=== PATIENT | female | born 1965 | race Caucasian/White ===

== ENCOUNTER 2023-06-09 14:49 | Emergency (ER) | payer BC, SELFPAY ==
[2023-06-09 14:52] VITALS: BP 195/101; PULSE 87; RESP 18; TEMP 37.1; O2SAT 99; BMI 41.5
--- NOTE | 2023-06-09 16:15 | ED.GENADULT ---
HPI - General Adult General Chief complaint: Diabetic Related Problem Stated complaint: Blood sugar 430 Time Seen by Provider: 06/09/23 16:15 History of Present Illness HPI narrative: usually takes jardiance. new insurance doesn't cover. so hasn't been taking anything. called PMD today when accu check was 430 and was referred to ED. has taken Lantus before between oral meds, but is out 57-year-old woman presenting to the emergency department with concern of hyperglycemia. Today blood sugar reached high of 430 and after calling into her clinic her triage line sent her to the emergency department for care. She does admit that is feeling more woozy. She has not had a fever. Chronically with urinary frequency regardless. She has been without her usual Jardiance due to lack of insurance coverage/change in insurance for the last couple of weeks. Due to this also has been told by insurance that her primary provider is not on her list of covered providers, although her primary care clinic apparently is covered. 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 Continuing to take 10 units of Lantus at at bedtime, sounds like the evenings. Historically was intolerant of metformin, Trulicity, Ozempic. Does have somewhat of a headache. Otherwise no pain complaints. Related Data Home Medications Medication Instructions Recorded Confirmed atorvastatin 20 mg tablet 20 mg PO QPM 06/09/23 06/09/23 lisinopril 10 mg tablet 10 mg PO DAILY 06/09/23 06/09/23 Allergies Allergy/AdvReac Type Severity Reaction Status Date / Time codeine Allergy Verified 06/09/23 14:57 Review of Systems Status of ROS: Reports: 6 or more systems reviewed and unremarkable except as noted in History and below PFSH PFS Social History Smoking Status: Never smoker How often do you have a drink containing alcohol: never How often do you have six or more drinks on one occasion: Never AUDIT-C Alcohol total score: 0 Non-prescribed substance use: denies use Exam Narrative: Exam Narrative: Vitals noted on arrival is with rather elevated blood pressure. She is accompanied by her daughter I believe. Easily conversant. Breathing easily. I do not small ketones. Skin is warm dry. Pulse is in a regular rate. Looks to have chronic right slightly greater than left lower extremity edema with some posterior lower leg well-healed ulcerations at this point. Hemosiderin deposition in his right leg as well. Heart in regular rate and rhythm without murmur rub or gallop. Abdomen soft, overweight, nontender. Const: Vital Signs, click to edit/add: Vital Signs - 24 hr 06/09/23 17:30 Pulse Rate [Right Pulse Oximeter] 67 Respiratory Rate 20 Blood Pressure [Ri ght Upper Arm] 159/89 H Pulse Oximetry 97 Oxygen Delivery Me thod Room Air Documenting provider has reviewed patient's vital signs: yes Course Vital Signs Vital signs: Initial Vital Signs Temperature 98.7 F 06/09/23 14:52 Temperature Source Temporal Artery Scan 06/09/23 14:52 Pulse Rate 87 06/09/23 14:52 Respiratory Rate 18 06/09/23 14:52 Blood Pressure 195/101 H 06/09/23 14:52 Blood Pressure Mean 132 H 06/09/23 14:52 Pulse Oximetry 99 06/09/23 14:52 Oxygen Delivery Method Room Air 06/09/23 14:52 Vital Signs Temperature 98.7 F 06/09/23 14:52 Pulse Rate 87 06/09/23 14:52 Respiratory Rate 18 06/09/23 14:52 Blood Pressure 195/101 H 06/09/23 14:52 Pulse Oximetry 99 06/09/23 14:52 Oxygen Delivery Method Room Air 06/09/23 14:52 Temperature 98.7 F 06/09/23 14:52 Pulse Rate 67 06/09/23 17:30 Respiratory Rate 20 06/09/23 17:30 Blood Pressure 159/89 H 06/09/23 17:30 Pulse Oximetry 97 06/09/23 17:30 Oxygen Delivery Method Room Air 06/09/23 17:30 Medications Administered Medications: Discontinued Medications Generic Name Dose Route Start Last Admin Trade Name Freq PRN Reason Stop Dose Admin Sodium Chloride 1,000 mls @ 1,000 mls/hr 06/09/23 16:43 06/09/23 18:41 0.9 % Sodium Chloride 1000 Ml IV 06/09/23 17:42 0 mls/hr .Q1H ONE Infusion Insulin Human Regular 12 unit 06/09/23 16:43 06/09/23 17:37 Insulin Regular 100 Unit/Ml Inj IVP 06/09/23 16:44 12 unit ONCE ONE Administration Medical Decision Making MDM Narrative Medical decision making narrative: Ideally this would and I think could be managed in primary care clinic. She is however symptomatic. Evaluate for potential degree of acidosis; any evidence of infection. Will initiate IV fluids. Get her blood sugar headed down but will need to do stop gap I suspect with increasing doses of Lantus and sliding-scale insulin possibly. Checking labs for red flags. Surely is dehydrated to some degree. Labs are overall reassuring without acidosis with initial blood sugar though at 289. Was given 12 units regular insulin. On reassessment feeling improved. Still with some headache. Recheck blood sugar at 236. Discussed outpatient management. She does report having enough Lantus and needles and monitoring supplies, depending on dosing, to last somewhere between 2 to 4 weeks. Reports that was anticipating able to schedule in clinic about a week from now. Challenging to figure out how to schedule dosing due to irregular schedule, working nights. Has never really engaged in carb counting though does have this information available. Also could certainly improve diet. Reviewed again type 2 diabetes versus type 1. Probably best to keep this simple and use what she has. I do not think sugars will get wildly out of control. Has a lot of room to go with Lantus. Given intolerance of various medications and that it does not appear that she has ever got close to maximizing dosing of Lantus, will try to adjust dosing of Lantus for better sugar control. Efforts to decrease insulin resistance will need to be with physical activity for now. See patient discharge plan for further discussion Lab Data Lab results reviewed: Yes I reviewed the patient's lab results Labs: Lab Results 06/09/23 06/09/23 06/09/23 Range/Units 16:45 17:20 17:20 WBC 8.20 (4.50-11.00) K/uL RBC 4.72 (4.00-5.20) m/uL Hgb 13.8 (12.0-16.0) gm/dL Hct 42.8 (33.0-51.0) % MCV 91 (80-100) fL MCH 29 (26-34) pg MCHC 32 (32-36) gm/dL RDW Coeff of [place] 13.3 (11.5-15.5) % Plt Count 195 (140-440) K/uL Neut % (Auto) 62.9 (42.0-72.0) % Lymph % (Auto) 30.6 (20-44) % [place] % (Auto) 5.1 (0.0-11.0) % Eos % (Auto) 1.1 (0.0-7.0) % Baso % (Auto) 0.2 (0.0-3.0) % Neut # (Auto) 5.15 (1.7-7.0) K/uL Lymph # (Auto) 2.51 (0.90-2.90) K/uL [place] # (Auto) 0.40 (0.00-0.90) K/UL Eos # (Auto) 0.09 (0.00-0.50) K/uL Baso # (Auto) 0.02 (0.00-0.30) K/uL Abs Immat Gran (auto) 0.01 (0.00-0.30) K/uL Imm/Tot Granulo (auto) 0.1 % VBG pH 7.386 (7.32-7.43) VBG pCO2 43 (40-50) mmHG VBG pO2 30.6 (25-47) mmHG VBG HCO3 26 (21-28) mmol/L Sodium Cancelled 133 L Potassium Cancelled Chloride Carbon Dioxide Anion Gap BUN Creatinine Estimated Creat Clear Estimated GFR Glucose Lactate (0.5-1.9) mmol/L Calcium Total Bilirubin (0.1-1.5) mg/dL Direct Bilirubin (0.0-0.5) mg/dL AST (12-35) U/L ALT (4-35) U/L Alkaline Phosphatase (40-150) U/L C-Reactive Protein (0.5-1.0) mg/dL Total Protein (6.0-8.3) g/dL Albumin (3.3-5.0) g/dL Urine Color Yellow (Yellow) Urine Appearance Clear (Clear) Urine pH 6.0 (5.0-8.5) Ur Specific [place] 1.020 (1.000-1.030) Urine Protein Negative (Negative) Urine Glucose (UA) 2+ A (Negative) Urine Ketones Negative (Negative) Urine Blood Negative (Negative) Urine Nitrite Negative (Negative) Urine Bilirubin Negative (Negative) Urine Urobilinogen 0.2 (0.2-1.0) Ur Leukocyte Esterase Negative (Negative) Urine RBC 0-2 (0-2) Urine WBC 2-5 (0-5) Ur Squamous Epith Cells Few (None-Few) Urine Bacteria None (None) POC Glucose (60-115) mg/dl 06/09/23 06/09/23 06/09/23 Range/Units 17:20 17:20 17:20 WBC (4.50-11.00) K/uL RBC (4.00-5.20) m/uL Hgb (12.0-16.0) gm/dL Hct (33.0-51.0) % MCV (80-100) fL MCH (26-34) pg MCHC (32-36) gm/dL RDW Coeff of [place] (11.5-15.5) % Plt Count (140-440) K/uL Neut % (Auto) (42.0-72.0) % Lymph % (Auto) (20-44) % [place] % (Auto) (0.0-11.0) % Eos % (Auto) (0.0-7.0) % Baso % (Auto) (0.0-3.0) % Neut # (Auto) (1.7-7.0) K/uL Lymph # (Auto) (0.90-2.90) K/uL [place] # (Auto) (0.00-0.90) K/UL Eos # (Auto) (0.00-0.50) K/uL Baso # (Auto) (0.00-0.30) K/uL Abs Immat Gran (auto) (0.00-0.30) K/uL Imm/Tot Granulo (auto) % VBG pH (7.32-7.43) VBG pCO2 (40-50) mmHG VBG pO2 (25-47) mmHG VBG HCO3 (21-28) mmol/L Sodium Potassium 4.3 Chloride Cancelled 104 Carbon Dioxide Cancelled 24 Anion Gap Cancelled BUN Creatinine Estimated Creat Clear Estimated GFR Glucose Lactate (0.5-1.9) mmol/L Calcium Total Bilirubin (0.1-1.5) mg/dL Direct Bilirubin (0.0-0.5) mg/dL AST (12-35) U/L ALT (4-35) U/L Alkaline Phosphatase (40-150) U/L C-Reactive Protein (0.5-1.0) mg/dL Total Protein (6.0-8.3) g/dL Albumin (3.3-5.0) g/dL Urine Color (Yellow) Urine Appearance (Clear) Urine pH (5.0-8.5) Ur Specific [place] (1.000-1.030) Urine Protein (Negative) Urine Glucose (UA) (Negative) Urine Ketones (Negative) Urine Blood (Negative) Urine Nitrite (Negative) Urine Bilirubin (Negative) Urine Urobilinogen (0.2-1.0) Ur Leukocyte Esterase (Negative) Urine RBC (0-2) Urine WBC (0-5) Ur Squamous Epith Cells (None-Few) Urine Bacteria (None) POC Glucose (60-115) mg/dl 06/09/23 06/09/23 06/09/23 Range/Units 17:20 17:20 17:20 WBC (4.50-11.00) K/uL RBC (4.00-5.20) m/uL Hgb (12.0-16.0) gm/dL Hct (33.0-51.0) % MCV (80-100) fL MCH (26-34) pg MCHC (32-36) gm/dL RDW Coeff of [place] (11.5-15.5) % Plt Count (140-440) K/uL Neut % (Auto) (42.0-72.0) % Lymph % (Auto) (20-44) % [place] % (Auto) (0.0-11.0) % Eos % (Auto) (0.0-7.0) % Baso % (Auto) (0.0-3.0) % Neut # (Auto) (1.7-7.0) K/uL Lymph # (Auto) (0.90-2.90) K/uL [place] # (Auto) (0.00-0.90) K/UL Eos # (Auto) (0.00-0.50) K/uL Baso # (Auto) (0.00-0.30) K/uL Abs Immat Gran (auto) (0.00-0.30) K/uL Imm/Tot Granulo (auto) % VBG pH (7.32-7.43) VBG pCO2 (40-50) mmHG VBG pO2 (25-47) mmHG VBG HCO3 (21-28) mmol/L Sodium Potassium Chloride Carbon Dioxide Anion Gap 5 L BUN Cancelled 17 Creatinine Cancelled 0.7 Estimated Creat Clear Cancelled Estimated GFR Glucose Lactate (0.5-1.9) mmol/L Calcium Total Bilirubin (0.1-1.5) mg/dL Direct Bilirubin (0.0-0.5) mg/dL AST (12-35) U/L ALT (4-35) U/L Alkaline Phosphatase (40-150) U/L C-Reactive Protein (0.5-1.0) mg/dL Total Protein (6.0-8.3) g/dL Albumin (3.3-5.0) g/dL Urine Color (Yellow) Urine Appearance (Clear) Urine pH (5.0-8.5) Ur Specific [place] (1.000-1.030) Urine Protein (Negative) Urine Glucose (UA) (Negative) Urine Ketones (Negative) Urine Blood (Negative) Urine Nitrite (Negative) Urine Bilirubin (Negative) Urine Urobilinogen (0.2-1.0) Ur Leukocyte Esterase (Negative) Urine RBC (0-2) Urine WBC (0-5) Ur Squamous Epith Cells (None-Few) Urine Bacteria (None) POC Glucose (60-115) mg/dl 06/09/23 06/09/23 06/09/23 Range/Units 17:20 17:20 17:20 WBC (4.50-11.00) K/uL RBC (4.00-5.20) m/uL Hgb (12.0-16.0) gm/dL Hct (33.0-51.0) % MCV (80-100) fL MCH (26-34) pg MCHC (32-36) gm/dL RDW Coeff of [place] (11.5-15.5) % Plt Count (140-440) K/uL Neut % (Auto) (42.0-72.0) % Lymph % (Auto) (20-44) % [place] % (Auto) (0.0-11.0) % Eos % (Auto) (0.0-7.0) % Baso % (Auto) (0.0-3.0) % Neut # (Auto) (1.7-7.0) K/uL Lymph # (Auto) (0.90-2.90) K/uL [place] # (Auto) (0.00-0.90) K/UL Eos # (Auto) (0.00-0.50) K/uL Baso # (Auto) (0.00-0.30) K/uL Abs Immat Gran (auto) (0.00-0.30) K/uL Imm/Tot Granulo (auto) % VBG pH (7.32-7.43) VBG pCO2 (40-50) mmHG VBG pO2 (25-47) mmHG VBG HCO3 (21-28) mmol/L Sodium Potassium Chloride Carbon Dioxide Anion Gap BUN Creatinine Estimated Creat Clear 85.19 Estimated GFR Cancelled 100 Glucose Cancelled 289 H Lactate 1.3 (0.5-1.9) mmol/L Calcium Cancelled Total Bilirubin (0.1-1.5) mg/dL Direct Bilirubin (0.0-0.5) mg/dL AST (12-35) U/L ALT (4-35) U/L Alkaline Phosphatase (40-150) U/L C-Reactive Protein (0.5-1.0) mg/dL Total Protein (6.0-8.3) g/dL Albumin (3.3-5.0) g/dL Urine Color (Yellow) Urine Appearance (Clear) Urine pH (5.0-8.5) Ur Specific [place] (1.000-1.030) Urine Protein (Negative) Urine Glucose (UA) (Negative) Urine Ketones (Negative) Urine Blood (Negative) Urine Nitrite (Negative) Urine Bilirubin (Negative) Urine Urobilinogen (0.2-1.0) Ur Leukocyte Esterase (Negative) Urine RBC (0-2) Urine WBC (0-5) Ur Squamous Epith Cells (None-Few) Urine Bacteria (None) POC Glucose (60-115) mg/dl 06/09/23 06/09/23 Range/Units 17:20 18:13 WBC (4.50-11.00) K/uL RBC (4.00-5.20) m/uL Hgb (12.0-16.0) gm/dL Hct (33.0-51.0) % MCV (80-100) fL MCH (26-34) pg MCHC (32-36) gm/dL RDW Coeff of [place] (11.5-15.5) % Plt Count (140-440) K/uL Neut % (Auto) (42.0-72.0) % Lymph % (Auto) (20-44) % [place] % (Auto) (0.0-11.0) % Eos % (Auto) (0.0-7.0) % Baso % (Auto) (0.0-3.0) % Neut # (Auto) (1.7-7.0) K/uL Lymph # (Auto) (0.90-2.90) K/uL [place] # (Auto) (0.00-0.90) K/UL Eos # (Auto) (0.00-0.50) K/uL Baso # (Auto) (0.00-0.30) K/uL Abs Immat Gran (auto) (0.00-0.30) K/uL Imm/Tot Granulo (auto) % VBG pH (7.32-7.43) VBG pCO2 (40-50) mmHG VBG pO2 (25-47) mmHG VBG HCO3 (21-28) mmol/L Sodium Potassium Chloride Carbon Dioxide Anion Gap BUN Creatinine Estimated Creat Clear Estimated GFR Glucose Lactate (0.5-1.9) mmol/L Calcium 9.4 Total Bilirubin 0.7 (0.1-1.5) mg/dL Direct Bilirubin 0.2 (0.0-0.5) mg/dL AST 19 (12-35) U/L ALT 21 (4-35) U/L Alkaline Phosphatase 91 (40-150) U/L C-Reactive Protein 0.9 (0.5-1.0) mg/dL Total Protein 7.9 (6.0-8.3) g/dL Albumin 4.4 (3.3-5.0) g/dL Urine Color (Yellow) Urine Appearance (Clear) Urine pH (5.0-8.5) Ur Specific [place] (1.000-1.030) Urine Protein (Negative) Urine Glucose (UA) (Negative) Urine Ketones (Negative) Urine Blood (Negative) Urine Nitrite (Negative) Urine Bilirubin (Negative) Urine Urobilinogen (0.2-1.0) Ur Leukocyte Esterase (Negative) Urine RBC (0-2) Urine WBC (0-5) Ur Squamous Epith Cells (None-Few) Urine Bacteria (None) POC Glucose 236 H (60-115) mg/dl Discharge Plan Discharge Clinical Impression: Hyperglycemia, Dehydration Patient Disposition: Home w/ Parent or Adult Condition: Improved Additional Instructions: Try to work back to more careful dietary intake. Helps to have somebody else to do with you I think. As I said we should probably all be eating as if we have diabetes. If you are changing to morning dosing of Lantus, this evening go ahead and take 4 units of Lantus. Tomorrow morning after work and before you go to bed, take 14 units of Lantus. Approximately 10 hours later and before your evening meal, check blood sugar. Adjust your morning doses of Lantus by increasing 2 units every day until you are in goal blood sugar somewhere between 100 and 140. Do not exceed 22 units of Lantus without follow-up. You may find that ultimately it is better for you to just take this Lantus in the evening. I think we both acknowledge that your variable schedule makes this complicated. So check blood sugars 8-10 hours after your Lantus dosing and then 2 hours after a meal. Do keep careful record of this so would make sense on follow-up in clinic. Please call tomorrow to get a follow-up in clinic soon as possible. You can discuss then sliding scale and in the meantime review prior dietary recommendations with carb counting so you are familiar with that on follow-up. I am sure you are active during your work but we know that exercise does decrease insulin resistance. Do try to get in little heart pumping exercise every day. Doing weight work I think would be a good idea. Prescriptions: No Action atorvastatin 20 mg tablet 20 mg PO QPM lisinopril 10 mg tablet 10 mg PO DAILY Follow Up/Referrals: Provider,Not a Local [Primary Care Provider] - Stand Alone Forms: [employer] Info Instructions
[2023-06-09 17:28] LABS: HCO3 VBG 26 mmol/L (21-28); Lactate* 1.3 mmol/L (0.5-1.9); PCO2 VBG 43 mmHG (40-50); PO2 VBG 30.6 mmHG (25-47); pH VBG 7.386 (7.32-7.43)
[2023-06-09 17:30] VITALS: BP 159/89; PULSE 67; RESP 20; O2SAT 97
[2023-06-09 17:33] LABS: Basophils Absolute Auto 0.02 K/uL (0.00-0.30); Basophils Percent Auto 0.2 % (0.0-3.0); Eosinophils Absolute Auto 0.09 K/uL (0.00-0.50); Eosinophils Percent Auto 1.1 % (0.0-7.0); Hematocrit 42.8 % (33.0-51.0); Hemoglobin* 13.8 gm/dL (12.0-16.0); Immature Granulocytes Abs Auto 0.01 K/uL (0.00-0.30); Immature Granulocytes Pct Auto 0.1 %; Lymphocytes Absolute Auto 2.51 K/uL (0.90-2.90); Lymphocytes Percent Auto 30.6 % (20-44); Mean Corpuscular HGB Conc 32 gm/dL (32-36); Mean Corpuscular Hemoglobin 29 pg (26-34); Mean Corpuscular Volume 91 fL (80-100); Monocytes Percent Auto 5.1 % (0.0-11.0); Neutrophils Absolute Auto 5.15 K/uL (1.7-7.0); Neutrophils Percent Auto 62.9 % (42.0-72.0); Platelet Count* 195 K/uL (140-440); RDW Coefficient of Variation % 13.3 % (11.5-15.5); Red Blood Count 4.72 m/uL (4.00-5.20)
[2023-06-09 17:34] LABS: Appearance Urine Clear (Clear); Bilirubin Urine Negative (Negative); Blood Urine Negative (Negative); Color Urine Yellow (Yellow); Glucose Urine 2+ (Negative); Ketones Urine Negative (Negative); Leukocyte Esterase Urine Negative (Negative); Nitrite Urine Negative (Negative); Protein Urine Negative (Negative); Urobilinogen Urine 0.2 (0.2-1.0)
[2023-06-09] MEDS: 0.9 % SODIUM CHLORIDE 1000 ml 1,000 ML IV (17:37)
[2023-06-09 17:41] LABS: Slide Review Reflex No
[2023-06-09 17:42] LABS: RBC Urine 0-2 (0-2); Squamous Epithelial Cell Urine Few (None-Few)
[2023-06-09 17:54] LABS: Albumin* 4.4 g/dL (3.3-5.0); Chloride* 104 mmol/L (96-114); Sodium* 133 mmol/L (135-149)
[2023-06-09 17:55] LABS: Potassium* 4.3 mmol/L (3.6-5.1)
[2023-06-09 17:57] LABS: Anion Gap 5 mEq/L (7-15); Aspartate Amino Transferase* 19 U/L (12-35); Bilirubin Direct* 0.2 mg/dL (0.0-0.5); Bilirubin Total* 0.7 mg/dL (0.1-1.5); Blood Urea Nitrogen* 17 mg/dL (7-30); Carbon Dioxide* 24 mmol/L (20-32); Creatinine* 0.7 mg/dL (0.5-1.5); Est. Creatinine Clearance* 85.19; Estimated Glomerular Filt Rate 100 ml/min; Total Protein* 7.9 g/dL (6.0-8.3)
[2023-06-09 17:58] LABS: Alanine Aminotransferase* 21 U/L (4-35); Alkaline Phosphatase* 91 U/L (40-150); Calcium* 9.4 mg/dL (8.4-10.6); Glucose* 289 mg/dL (60-115)
[2023-06-09 18:00] LABS: C Reactive Protein* 0.9 mg/dL (0.5-1.0)
[2023-06-09 18:14] LABS: Glucose, Point-of-Care* 236 mg/dl (60-115)
== END 2023-06-09 18:53 | disposition home or self-care (01) ==
PROVIDERS: Emergency Provider Family Medicine
DX: E11.65 Type 2 diabetes mellitus with hyperglycemia (principal); E86.0 Dehydration
CPT/HCPCS: 36415; 80048; 80076; 81001; 82803; 82947; 82962; 83605; 85025; 86140; 99283; 99284; J7030

== ENCOUNTER 2023-06-28 14:16 | Outpatient (CLI) | payer BC, SELFPAY | END 2023-06-28 14:17 | disposition home or self-care (01) | LOC: LKVREF 14:17 | PROVIDERS: PCP Family Medicine; Visit Provider Family Medicine | DX: E11.65 Type 2 diabetes mellitus with hyperglycemia (principal); Z79.4 Long term (current) use of insulin | CPT/HCPCS: 84681 ==

== ENCOUNTER 2024-03-24 08:50 | Outpatient (CLI) | payer OTHER, SELFPAY | END 2024-03-24 08:51 | disposition home or self-care (01) | LOC: LKVREF 08:50 | PROVIDERS: PCP Family Medicine; Visit Provider Family Medicine | DX: E78.5 Hyperlipidemia, unspecified (principal) | CPT/HCPCS: 80061 ==

== ENCOUNTER 2024-05-11 07:58 | Outpatient (CLI) | payer OTHER, SELFPAY | END 2024-05-11 07:59 | disposition home or self-care (01) | LOC: WOUND 07:58 | PROVIDERS: PCP Family Medicine; Visit Provider Nurse Practitioner Family | DX: I87.311 Chronic venous hypertension (idiopathic) with ulcer of right lower extremity (principal); E11.622 Type 2 diabetes mellitus with other skin ulcer; L97.812 Non-pressure chronic ulcer of other part of right lower leg with fat layer exposed; E66.9 Obesity, unspecified; Z68.41 Body mass index [BMI] 40.0-44.9, adult; Z79.4 Long term (current) use of insulin | CPT/HCPCS: 11042; G0463 ==

== ENCOUNTER 2024-05-18 08:54 | Outpatient (CLI) | payer OTHER, SELFPAY | END 2024-05-18 08:55 | disposition home or self-care (01) | LOC: WOUND 08:54 | PROVIDERS: PCP Family Medicine; Visit Provider Physician Assistant Surgical | DX: I87.311 Chronic venous hypertension (idiopathic) with ulcer of right lower extremity (principal); E11.622 Type 2 diabetes mellitus with other skin ulcer; L97.812 Non-pressure chronic ulcer of other part of right lower leg with fat layer exposed; Z79.4 Long term (current) use of insulin; Z79.84 Long term (current) use of oral hypoglycemic drugs | CPT/HCPCS: 11042 ==

== ENCOUNTER 2024-05-25 09:11 | Outpatient (CLI) | payer OTHER, SELFPAY | END 2024-05-25 09:12 | disposition home or self-care (01) | LOC: WOUND 09:11 | PROVIDERS: PCP Family Medicine; Visit Provider Nurse Practitioner Family | DX: I87.311 Chronic venous hypertension (idiopathic) with ulcer of right lower extremity (principal); E11.622 Type 2 diabetes mellitus with other skin ulcer; L97.812 Non-pressure chronic ulcer of other part of right lower leg with fat layer exposed; Z79.4 Long term (current) use of insulin | CPT/HCPCS: 97597 ==

== ENCOUNTER 2024-06-01 09:00 | Outpatient (CLI) | payer OTHER, SELFPAY | END 2024-06-01 09:01 | disposition home or self-care (01) | LOC: WOUND 09:00 | PROVIDERS: PCP Family Medicine; Visit Provider Nurse Practitioner Family | DX: I87.311 Chronic venous hypertension (idiopathic) with ulcer of right lower extremity (principal); E11.622 Type 2 diabetes mellitus with other skin ulcer; L97.812 Non-pressure chronic ulcer of other part of right lower leg with fat layer exposed; Z79.4 Long term (current) use of insulin; Z79.84 Long term (current) use of oral hypoglycemic drugs | CPT/HCPCS: 97597 ==

== ENCOUNTER 2024-06-08 09:00 | Outpatient (CLI) | payer OTHER, SELFPAY | END 2024-06-08 09:01 | disposition home or self-care (01) | LOC: WOUND 09:00 | PROVIDERS: PCP Family Medicine; Visit Provider Nurse Practitioner Family | DX: I87.311 Chronic venous hypertension (idiopathic) with ulcer of right lower extremity (principal); E11.622 Type 2 diabetes mellitus with other skin ulcer; L97.812 Non-pressure chronic ulcer of other part of right lower leg with fat layer exposed; Z79.4 Long term (current) use of insulin; Z79.84 Long term (current) use of oral hypoglycemic drugs | CPT/HCPCS: 97597 ==

== ENCOUNTER 2024-06-15 08:54 | Outpatient (CLI) | payer OTHER, SELFPAY | END 2024-06-15 08:55 | disposition home or self-care (01) | LOC: WOUND 08:54 | PROVIDERS: PCP Family Medicine; Visit Provider Nurse Practitioner Family | DX: I87.311 Chronic venous hypertension (idiopathic) with ulcer of right lower extremity (principal); E11.622 Type 2 diabetes mellitus with other skin ulcer; L97.812 Non-pressure chronic ulcer of other part of right lower leg with fat layer exposed; Z79.4 Long term (current) use of insulin; Z79.84 Long term (current) use of oral hypoglycemic drugs | CPT/HCPCS: 97597 ==

== ENCOUNTER 2024-06-22 09:07 | Outpatient (CLI) | payer OTHER, SELFPAY | END 2024-06-22 09:08 | disposition home or self-care (01) | LOC: WOUND 09:08 | PROVIDERS: PCP Family Medicine; Visit Provider Nurse Practitioner Family | DX: I87.311 Chronic venous hypertension (idiopathic) with ulcer of right lower extremity (principal); E11.622 Type 2 diabetes mellitus with other skin ulcer; L97.812 Non-pressure chronic ulcer of other part of right lower leg with fat layer exposed; Z79.4 Long term (current) use of insulin; Z79.84 Long term (current) use of oral hypoglycemic drugs | CPT/HCPCS: 11042 ==

== ENCOUNTER 2024-06-29 08:53 | Outpatient (CLI) | payer OTHER, SELFPAY | END 2024-06-29 08:54 | disposition home or self-care (01) | LOC: WOUND 08:53 | PROVIDERS: PCP Family Medicine; Visit Provider Nurse Practitioner Family | DX: I87.311 Chronic venous hypertension (idiopathic) with ulcer of right lower extremity (principal); E11.622 Type 2 diabetes mellitus with other skin ulcer; L97.812 Non-pressure chronic ulcer of other part of right lower leg with fat layer exposed; Z79.84 Long term (current) use of oral hypoglycemic drugs; Z79.4 Long term (current) use of insulin | CPT/HCPCS: 11042 ==

== ENCOUNTER 2024-07-06 09:13 | Outpatient (CLI) | payer OTHER, SELFPAY | END 2024-07-06 09:14 | disposition home or self-care (01) | LOC: WOUND 09:13 | PROVIDERS: PCP Family Medicine; Visit Provider Nurse Practitioner Family | DX: I87.311 Chronic venous hypertension (idiopathic) with ulcer of right lower extremity (principal); E11.622 Type 2 diabetes mellitus with other skin ulcer; L97.812 Non-pressure chronic ulcer of other part of right lower leg with fat layer exposed; Z79.4 Long term (current) use of insulin; Z79.84 Long term (current) use of oral hypoglycemic drugs | CPT/HCPCS: 11042 ==

== ENCOUNTER 2024-07-20 08:57 | Outpatient (CLI) | payer OTHER, SELFPAY | END 2024-07-20 08:58 | disposition home or self-care (01) | LOC: WOUND 08:57 | PROVIDERS: PCP Family Medicine; Visit Provider Nurse Practitioner Family | DX: I87.311 Chronic venous hypertension (idiopathic) with ulcer of right lower extremity (principal); E11.622 Type 2 diabetes mellitus with other skin ulcer; L97.812 Non-pressure chronic ulcer of other part of right lower leg with fat layer exposed; Z79.84 Long term (current) use of oral hypoglycemic drugs | CPT/HCPCS: 11042 ==

== ENCOUNTER 2024-07-27 08:53 | Outpatient (CLI) | payer OTHER, SELFPAY | END 2024-07-27 08:54 | disposition home or self-care (01) | LOC: WOUND 08:53 | PROVIDERS: PCP Family Medicine; Visit Provider Nurse Practitioner Family | DX: I87.311 Chronic venous hypertension (idiopathic) with ulcer of right lower extremity (principal); E11.622 Type 2 diabetes mellitus with other skin ulcer; L97.812 Non-pressure chronic ulcer of other part of right lower leg with fat layer exposed; Z79.4 Long term (current) use of insulin | CPT/HCPCS: G0463 ==

== ENCOUNTER 2024-08-03 08:56 | Outpatient (CLI) | payer OTHER, SELFPAY | END 2024-08-03 08:57 | disposition home or self-care (01) | LOC: WOUND 08:56 | PROVIDERS: PCP Family Medicine; Visit Provider Nurse Practitioner Family | DX: I87.311 Chronic venous hypertension (idiopathic) with ulcer of right lower extremity (principal); I10 Essential (primary) hypertension; E11.622 Type 2 diabetes mellitus with other skin ulcer; L97.812 Non-pressure chronic ulcer of other part of right lower leg with fat layer exposed; Z79.4 Long term (current) use of insulin | CPT/HCPCS: 97597 ==

== ENCOUNTER 2024-08-10 08:54 | Outpatient (CLI) | payer OTHER, SELFPAY | END 2024-08-10 08:55 | disposition home or self-care (01) | LOC: WOUND 08:54 | PROVIDERS: PCP Family Medicine; Visit Provider Nurse Practitioner Family | DX: I87.301 Chronic venous hypertension (idiopathic) without complications of right lower extremity (principal); E11.9 Type 2 diabetes mellitus without complications; Z79.4 Long term (current) use of insulin | CPT/HCPCS: G0463 ==

== ENCOUNTER 2024-08-11 09:00 | Outpatient (CLI) | payer OTHER, SELFPAY | END 2024-08-11 09:01 | disposition home or self-care (01) | LOC: LKVREF 09:00 | PROVIDERS: PCP Family Medicine; Visit Provider Family Medicine | DX: I10 Essential (primary) hypertension (principal) | CPT/HCPCS: 80048 ==

== ENCOUNTER 2024-12-01 10:12 | Outpatient (CLI) | payer OTHER, SELFPAY | END 2024-12-01 10:13 | disposition home or self-care (01) | PROVIDERS: PCP Family Medicine; Visit Provider Family Medicine | DX: Z13.29 Encounter for screening for other suspected endocrine disorder (principal); E78.2 Mixed hyperlipidemia | CPT/HCPCS: 80061; 84443 ==